=== PATIENT | female | born 2005 ===

== ENCOUNTER 2023-12-17 19:30 | Emergency (ER) | payer OTHER ==
[~2023-12-17] VITALS: Ht 152.4 cm; Wt 47.6 kg
[2023-12-17 19:54] LABS: BASOPHILS % (AUTO) 0.3 % (0.0-2.0); EOSINOPHILS # (AUTO) 0.1 K/uL (0.0-0.7); EOSINOPHILS % (AUTO) 0.6 % (0.0-7.0); HEMATOCRIT 37.9 % (31.2-41.9); HEMOGLOBIN 12.7 g/dL (10.9-14.3); MEAN CORPUSCULAR HEMOGLOBIN 29.9 uug (24.7-32.8); MEAN CORPUSCULAR HGB CONC 34 g/dL (32.3-35.6); MEAN CORPUSCULAR VOLUME 88.9 fL (75.5-95.3); MONOCYTES # (AUTO) 0.5 K/uL (0.1-1.30); MONOCYTES % (AUTO) 6.4 % (0-11); NEUTROPHILS # (AUTO) 3.7 K/uL (1.8-8.9); NEUTROPHILS % (AUTO) 44.7 % (31.5-64.5); PLATELET COUNT (AUTO) 339 K/uL (179-408); RED BLOOD CELL COUNT(AUTO) 4.26 MIL/uL (3.63-4.92); RED CELL DISTRIBUTION WIDTH 14.1 % (12.3-17.7); WHITE BLOOD COUNT (AUTO) 8.2 K/uL (3.8-11.8)
[2023-12-17 20:00] LABS: DIFFERENTIAL COMMENT 1
[2023-12-17] MEDS: IV NS 1000 ML 1,000 ML IV ONE (20:00)
[2023-12-17 20:08] LABS: ALBUMIN 3.3 g/dL (3.4-5.0); BILIRUBIN,TOTAL 0.5 mg/dL (0.2-1.0); CALCIUM 8.3 mg/dL (8.5-10.1); POTASSIUM 3.9 mmol/L (3.5-5.1); TOTAL PROTEIN, SERUM 6.7 g/dL (6.4-8.2)
[2023-12-17 21:06] LABS: *BILIRUBIN,URIN NEGATIVE (NEGATIVE); *BLOOD, URINE 3+ (NEGATIVE); *CLARITY,URINE CLEAR (CLEAR); *COLOR,URINE YELLOW (YELLOW); *KETONES,URINE NEGATIVE (NEGATIVE); *PROTEIN,URINE NEGATIVE (NEGATIVE); *UROBILINOGEN,URINE 0.2 E.U./dl (NORMAL); LEUKOCYTE ESTERASE ,URINE TRACE (NEGATIVE); NITRITE, URINE NEGATIVE (NEGATIVE); PH,URINE 7.5 (5.0-8.0); UGLUCOSE NEGATIVE (NEGATIVE)
[2023-12-17 21:09] LABS: *URINE HCG, QUAL NEGATIVE (NEGATIVE)
[2023-12-17 21:45] VITALS: BP 100/78; O2SAT 98
[2023-12-17 21:49] LABS: BACTERIA,URINE FEW /HPF (NONE SEEN); RBC,URINE 80-100 /HPF (0-3); SQUAMOUS EPITHELIAL CELL,UR MODERATE /HPF (NONE SEEN)
== END 2023-12-17 21:45 | disposition home or self-care (01) ==
LOC: ER 19:32
DX: R55 Syncope and collapse (principal); R10.2 Pelvic and perineal pain
CPT/HCPCS: 36415; 71045; 84484; 84703; 85025; A4606; A4663; J7040